=== PATIENT | male | born 1965 | race Caucasian/White ===

== ENCOUNTER 2023-01-31 07:43 | Outpatient (CLI) | payer OTHER, SELFPAY ==
[2023-01-31 08:39] LABS: Prothrombin Time 13.2 Seconds (11.1-14.7)
[2023-01-31 08:40] LABS: Partial Thromboplastin Time 25.6 SECONDS (22.3-36.8)
== END 2023-01-31 07:44 | disposition home or self-care (01) ==
LOC: ANHSURGERY 07:47
PROVIDERS: PCP Family Medicine; Visit Provider Urology
DX: Z01.818 Encounter for other preprocedural examination (principal); N20.0 Calculus of kidney
CPT/HCPCS: 36415; 85610; 85730; 87086

== ENCOUNTER 2023-02-03 01:12 | Day surgery (SDC) | payer OTHER, SELFPAY ==
[2023-01-25 15:09] VITALS: BMI 30.2
--- NOTE | 2023-01-25 15:21 | PC.NURSE ---
PRE-OP INSTRUCTIONS, PLEASE READ CAREFULLY Report to the Outpatient Waiting Room, entrance under the green pavilion located off [facility], at time _0630_ on date _02/03/23__. Planned Procedure Time: _0830__. Time changes happen often and if your time is changed the preop area will call you the afternoon before. - You and your visitor will be asked to self-screen and do not enter if you have any COVID symptoms. - A mask is optional within the hospital at this time. Patients may have clear liquids (water, carbonated beverages, clear teas, apple juice) until 3 hours prior to surgery (0530 AM) with a maximum of 20 ounces. - No food from midnight until time of surgery Take the following medications with a SIP of water the morning of surgery: __TYLENOL IF NEEDED__ DO NOT STOP ANY OF YOUR OTHER PRESCRIPTION MEDICATIONS PRIOR TO SURGERY ?EXCEPT THE FOLLOWING Medications to discontinue per physician __N/A__, Date to take last dose Please no make-up, nail hong konger, hairspray, perfume, deodorant, or body powder the day of surgery. No jewelry (including any body piercings) or valuables the day of surgery, leave them at home. Please take a shower or bath the night before, or the morning of, surgery with an antibacterial soap. Wear comfortable, loose fitting clothing. - Jewelry must be removed prior to entering the operating room. Rings and piercings that are not removed may be cut off. - The hospital will not accept responsibility for valuables. - Please leave all valuables, including medications, at home the day of surgery. If you are going home after surgery, a licensed dumpcart driver must drive you home. - NO public transportation without another adult if you receive anesthesia. - We recommend that an adult stay with you for 24 hours following discharge. - We also recommend that you do not drive, make important decision, drink alcoholic beverages, or take any drugs that were not prescribed by your health care provider for at least 24 hours after your discharge time. Follow any additional instructions given to you from your surgeon. If you or anyone in your household have experienced Covid symptoms in the past week, please notify your surgeon or the nurse liaison at the phone number below for possible testing. Telephone instructions given to _PATIENT_and asked if any additional questions and then verbalized understanding. Patient advised to call surgeon office or pre surgery nurse liaison [phone] if any additional questions.
[2023-02-03] VITALS (8 sets, daily range): BP systolic 123–147; BP diastolic 60–98; PULSE 60–88; RESP 12–20; TEMP 36.5–36.6; O2SAT 100
--- NOTE | ~2023-02-03 | XR_ITS ---
EXAMINATION: XR abdomen/kub 1V INDICATION: Urolithiasis TECHNIQUE: Supine views of the abdomen were obtained on 2 radiographs. COMPARISON: 03/30/2018 FINDINGS: There are five adjacent stones of the right kidney upper pole which measure up to 6 mm. The re appears to be a 7 mm stone of the left kidney lower pole. No definite stones are identified along the expected courses of the ureters or within the urinary bladder. The bowel gas pattern is normal. T he visualized lung bases are clear. IMPRESSION: 1. Bilateral nephrolithiasis. Reviewed, dictated and finalized at location B.
--- NOTE | 2023-02-03 07:14 | WPDHPUPDATE1 ---
History and Physical Update Update Date/Time: 02/03/23 07:14 History and Physical has been reviewed, including an updated exam of the patient. There are NO changes in the patient's condition. Risks, benefits, and alternatives have been discussed and questions answered. Patient agrees to proceed with procedure.
--- NOTE | 2023-02-03 09:27 | P.PNAN_ITS ---
Anes - Initial Pre Proc Eval Procedure: Operation Date: 02/03/23 11:30 Proposed Procedures p Left Extracorporeal Shock Wave Lithotripsy - Karlos Casillas MD Date/Time: 02/03/23 09:27 Surgeon: Karlos Casillas MD Pre Op Diagnosis: Lt Kidney Stone Patient Data Age: 58 Gender: M Height: 1.78 m Weight: 95.45 kg Allergies Allergy/AdvReac Type Severity Reaction Status Date / Time No Known Allergies Allergy Unverified 01/25/23 15:08 Home Medications Medication Instructions Recorded Confirmed Type acetaminophen 650 mg 1,300 mg PO Q8H PRN Pain 01/25/23 02/03/23 History tablet,extended release (Tylenol 8 Hour) cephalexin 500 mg capsule 500 mg PO Q8H #9 caps 02/03/23 Rx hydrocodone 5 mg-acetaminophen 325 1 - 2 tablet PO Q6H PRN pain #20 02/03/23 Rx mg tablet tabs Patient hx anesthesia problems: none Family hx anesthesia problems: none Results Review: All pre-operative results and documents have been reviewed as part of the pre- operative evaluation. PENDING SALE TO [facility] Past Medical History Medical History (Updated 01/03/23 @ 09:31 by Michael Holloway MD) H/O nephrolithotomy with removal of calculi Kidney stone on left side Kidney stones Family History Family History (Updated 01/03/23 @ 08:56 by Diana Lam CMA) Father Asthma Diabetes mellitus Cerebrovascular accident Social History Social History (Updated 01/03/23 @ 08:56 by Diana Lam CMA) Smoking status: Never smoker Tobacco type: smokeless tobacco Smokeless tobacco user: chewing tobacco Second hand tobacco smoke exposure: No Alcohol intake: current Alcohol use details: 1-2 DRINKS/WEEK Substance use: never Substance use type: does not use Lack of Transportation: No Lack of Food: Never True Current Housing: I Have Housing Concerned About Future Housing: No Difficulty Paying Gas/Electric Bills: No Difficulty Paying for Meds: No Currently Unemployed: No Education: Don't Know Difficulty w/ Childcare or Family Care: No Living arrangements: with family Occupation/Education: occupation 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 Informed Consent: The patient's anesthetic plan and its attendant risks and benefits were discussed with the patient/family/POA. Questions were solicited and answers provided to the satisfaction of the patient/family/POA.
[2023-02-03] MEDS: LACTATED RINGERS 1,000 ML 30 ML IV CONT (10:00)
[2023-02-03] MEDS: ceFAZolin 2 GM/D5W 50 ML 2 GM/50 ML BAG IVPB (10:57)
--- NOTE | 2023-02-03 11:26 | W.PM.PROC2 ---
Procedure Note - Detailed Date of Procedure 02/03/23 Pre-op Diagnosis Bilateral Kidney Stones Post-op Diagnosis Same Procedure Performed Left ESWL Surgeon Karlos Casillas MD Anesthesia General Description of Procedure The patient was brought to the operative suite where he was placed in the supine position on the Dornier lithotripsy table. The focal point of the lithotripter was placed at a 7-8mm left renal pelvic calculus. A total of 2500 shocks were delivered at a power setting of 1-4. There appeared to be good fragmentation of the stone. The patient tolerated the procedure well and was taken to the recovery room in good condition. Drains No Packing No Pathology None sent Complications No immediate complications Condition Stable
== END 2023-02-03 13:05 | disposition home or self-care (01) ==
PROVIDERS: PCP Family Medicine; Visit Provider Urology
PROC: (CPT 50590; principal; 2023-02-03 11:30)
DX: N20.0 Calculus of kidney (principal); F17.220 Nicotine dependence, chewing tobacco, uncomplicated; E66.9 Obesity, unspecified; Z68.29 Body mass index [BMI] 29.0-29.9, adult
CPT/HCPCS: 50590; 36415; 74018; 85610; 85730; 87086; J0690; J1100; J2250; J2405; J2704; J3010; J7120

== ENCOUNTER → 2023-02-17 11:01 | Outpatient (CLI) | payer OTHER, SELFPAY ==
--- NOTE | ~2023-02-17 | XR_ITS ---
EXAMINATION: XR abdomen/kub 1V INDICATION: Calculus of kidney TECHNIQUE: Supine views of the abdomen were obtained on 2 radiographs. COMPARISON: 02/03/2023 FINDINGS: Many of the previously described right kidney upper pole stones are no longer evident. Ther e is a single 5 mm linear calcification projecting at the right kidney upper pole. Suspected stones o f the left kidney are not definitely seen. No stone fragments are identified along the expected cours es of the ureters or in the urinary bladder. The bowel gas pattern is normal. The visualized lung bas es are clear. IMPRESSION: 1. Findings consistent with interval lithotripsy and single persistent right kidney upper pole stone. Reviewed, dictated and finalized at location B. IMPRESSION: 1. Findings consistent with interval lithotripsy and single persistent right ki dney upper pole stone.
== END ==
PROVIDERS: PCP Urology; Visit Provider Urology
DX: N20.0 Calculus of kidney (principal)
CPT/HCPCS: 74018

== ENCOUNTER 2023-11-16 08:23 | Day surgery (SDC) | payer OTHER, SELFPAY ==
[2023-10-26 15:05] VITALS: BMI 29.5
[2023-11-16 09:17] VITALS: BP 120/87; PULSE 65; RESP 16; TEMP 36.9; O2SAT 99; BMI 29.5
[2023-11-16] MEDS: LACTATED RINGERS 1,000 ML 150 ML IV CONT (09:30)
--- NOTE | 2023-11-16 10:09 | P.PNAN_ITS ---
Anes - Initial Pre Proc Eval Procedure: Operation Date: 11/16/23 10:30 Proposed Procedures p Screening Colonoscopy - Johan Porter MD Date/Time: 11/16/23 10:09 Surgeon: Johan Porter MD Pre Op Diagnosis: Neoplasm Screening Patient Data Age: 58 Gender: M Height: 1.78 m Weight: 93.3 kg Last Vital Signs Temp 36.9 C 11/16/23 09:17 Pulse 65 11/16/23 09:17 Resp 16 11/16/23 09:17 BP 120/87 11/16/23 09:17 Pulse Ox 99 11/16/23 09:17 O2 Del Method Room Air 11/16/23 09:17 Allergies Allergy/AdvReac Type Severity Reaction Status Date / Time No Known Allergies Allergy Verified 11/16/23 09:16 Home Medications Medication Instructions Recorded Confirmed Type cholecalciferol (vitamin D3) 5,000 unit PO .QD 10/20/23 11/16/23 History Patient hx anesthesia problems: none Family hx anesthesia problems: none Results Review: All pre-operative results and documents have been reviewed as part of the pre-operative evaluation. [facility] Past Medical History Medical History H/O nephrolithotomy with removal of calculi Kidney stone on left side Kidney stones Family History Family History Father Asthma Diabetes mellitus Cerebrovascular accident Social History Social History Smoking status: Never smoker Tobacco type: smokeless tobacco Smokeless tobacco user: chewing tobacco Second hand tobacco smoke exposure: No Alcohol intake: current Drinks per week: 3 Alcohol use details: 1-2 DRINKS/WEEK Substance use: never Substance use type: does not use Lack of Transportation: No Lack of Food: Never True Current Housing: I Have Housing Concerned About Future Housing: No Difficulty Paying Gas/Electric Bills: No Difficulty Paying for Meds: No Currently Unemployed: No Education: Don't Know Difficulty w/ Childcare or Family Care: No Living arrangements: with family Occupation/Education: occupation 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 Informed Consent: The patient's anesthetic plan and its attendant risks and benefits were discussed with the patient/family/POA. Questions were solicited and answers provided to the satisfaction of the patient/family/POA.
--- NOTE | 2023-11-16 10:17 | P.HP_ITS ---
History of Present Illness History of Present Illness Consent: Risks, benefits, and alternatives have been discussed and questions answered. Patient agrees to proceed with procedure. Chief complaint: Neoplasm Screening Narrative: Jnai Vu is a 58 year old male presents for screening colonoscopy. Patient reports his bowel habits are normal. He denies abdominal pain. Patient has had no bleeding. Family history noncontributory. Review of Systems Review of Systems: All systems reviewed & are unremarkable except as noted in HPI and below PMFSH Past Medical History Medical History H/O nephrolithotomy with removal of calculi Kidney stone on left side Kidney stones Family History Family History Father Asthma Diabetes mellitus Cerebrovascular accident Social History Social History Smoking status: Never smoker Tobacco type: smokeless tobacco Smokeless tobacco user: chewing tobacco Second hand tobacco smoke exposure: No Alcohol intake: current Drinks per week: 3 Alcohol use details: 1-2 DRINKS/WEEK Substance use: never Substance use type: does not use Lack of Transportation: No Lack of Food: Never True Current Housing: I Have Housing Concerned About Future Housing: No Difficulty Paying Gas/Electric Bills: No Difficulty Paying for Meds: No Currently Unemployed: No Education: Don't Know Difficulty w/ Childcare or Family Care: No Living arrangements: with family Occupation/Education: occupation 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 Vital signs stable. HEENT exam is unremarkable. Patient is anicteric. Lungs are clear to auscultation and to percussion. Heart is without murmur or extra sounds. Abdomen bowel sounds are present soft nontender with no organomegaly. Digital external rectal exam normal. Assessment and Plan Assessment and plan (1) Screening for colon cancer: Code(s): Z12.11 - Encounter for screening for malignant neoplasm of colon Status: Acute Assessment and Plan: Patient presents for neoplasia screening colonoscopy. He appears to be at average risk for colon polyps. Further recommendations may be given after e ndoscopy.
[2023-11-16 11:42] VITALS: BP 102/80; PULSE 79; RESP 15; O2SAT 99
[2023-11-16 11:52] VITALS: BP 121/82; PULSE 74; RESP 18; O2SAT 97
--- NOTE | 2023-11-16 11:54 | WPDANESPN ---
Anes - Prog Note Post-Op Date/Time: 11/16/23 11:54 Cardiovascular status: normal Respiratory status: normal Airway patency: baseline Mental status: baseline Post-Op hydration status: normal Vital Signs: Last Vital Signs Temp 36.9 C 11/16/23 09:17 Pulse 74 11/16/23 11:52 Resp 18 11/16/23 11:52 BP 121/82 11/16/23 11:52 Pulse Ox 97 11/16/23 11:52 O2 Del Method Room Air 11/16/23 11:52 Pain Score (VAS): 0/10 I/O: Intake & Output 11/15/23 11/16/23 11/16/23 23:59 07:59 15:59 Intake Total 600 Balance 600 Patient Feedback: Patient satisfied with anesthetic care.
[2023-11-16 12:02] VITALS: BP 126/84; PULSE 62; RESP 18; O2SAT 99
== END 2023-11-16 12:08 | disposition home or self-care (01) ==
PROVIDERS: PCP Physician Assistant Medical; Visit Provider Internal Medicine Gastroenterology
PROC: 0DJD8ZZ Inspection of Lower Intestinal Tract, Via Natural or Artificial Opening Endoscopic (ICD-10-PCS; CPT 45378; principal; 2023-11-16 10:30)
DX: Z12.11 Encounter for screening for malignant neoplasm of colon (principal); D12.3 Benign neoplasm of transverse colon; D12.5 Benign neoplasm of sigmoid colon; K57.30 Diverticulosis of large intestine without perforation or abscess without bleeding; K64.8 Other hemorrhoids
CPT/HCPCS: 45385

== ENCOUNTER 2023-11-17 10:33 | Outpatient (NON) | payer OTHER, SELFPAY | END 2023-11-17 10:34 | disposition home or self-care (01) | LOC: ANHLAB 10:34 | PROVIDERS: PCP Physician Assistant Medical; Visit Provider Internal Medicine Gastroenterology | DX: Z12.11 Encounter for screening for malignant neoplasm of colon (principal) | CPT/HCPCS: 88305 ==

== ENCOUNTER 2024-03-20 11:01 | Outpatient (CLI) | payer OTHER, SELFPAY ==
--- NOTE | ~2024-03-20 | CT_ITS ---
CLINICAL INDICATION: Hematuria. COMPARISON: 03/06/2018. TECHNIQUE: Computed tomography (CT) of the abdomen and pelvis was performed without intravenous contr ast. The dose-length product was 884.70 mGy-cm. FINDINGS/OBSERVATIONS: Visualized lower thorax:The bilateral lung bases are clear. Small hiatal hernia is present. The heart is of normal size, without pericardial effusion. Liver: The liver is not enlarged measuring 16 cm in longitudinal dimension. Gallbladder and biliary system: Multiple stones are identified within the gallbladder which is decomp ressed and otherwise unremarkable. Pancreas: Evaluation of the pancreas is limited secondary to the lack of intravenous contrast. Spleen: The spleen is not enlarged and demonstrates homogeneous attenuation Kidneys: Multiple stones are identified within the bilateral kidneys. The largest on the right is within the upper pole measuring 9 mm. The largest on the left is within the renal pelvis measuring 9.3 mm. No discrete hydroureteronephrosis is present. This configuration of calculi is unchanged from 2018 examination. Adrenal glands: Unremarkable Gastrointestinal tract: Unremarkable . Appendix:The air-filled appendix is of normal caliber (axial series, image 67) Vasculature: Unremarkable Lymph nodes: No pathologically enlarged or morphologically suspicious lymph nodes identified within t he retroperitoneum or at the root of the mesentery. Pelvic structures:The bladder is minimally distended, but otherwise unremarkable. Prostate gland contains a bulky calcification, also largely unchanged from 2018. Body wall and musculoskeletal: Small fat-containing umbilical hernia. No significant degenerative disease within the lumbosacral spine. IMPRESSION: Bilateral renal calculi, unchanged from 2018. No obstructive uropathy. Cholelithiasis. Reviewed, dictated and finalized at location A.
== END 2024-03-20 11:02 | disposition home or self-care (01) ==
LOC: MICIMG 11:02
PROVIDERS: PCP Physician Assistant Medical; Visit Provider Physician Assistant Medical
DX: N20.0 Calculus of kidney (principal); K80.20 Calculus of gallbladder without cholecystitis without obstruction; Z87.442 Personal history of urinary calculi
CPT/HCPCS: 74176

== ENCOUNTER 2024-03-27 17:14 | Outpatient (CLI) | payer OTHER, SELFPAY ==
[2024-03-27 17:38] LABS: Add Urine Microscopic? YES; Appearance Urine Clear (Clear); Bacteria Urine None Seen /hpf; Bilirubin Urine Negative (Negative); Blood Urine 2+ (Negative); Color Urine Yellow (Yellow); Glucose Urine UA Negative (Negative); Ketones Urine Negative (Negative); Leukocyte Esterase Ur Trace LEU/UL (Negative); Nitrate Urine Negative (Negative); Non Pathogenic Casts 0-2; Protein Urine Trace mg/dL (Negative); RBC Urine 21-50 /hpf (0-2); Squamous Epithelial Cell Urine None Seen /hpf (Few); Urobilinogen Urine 0.2 mg/dL (<2.0); WBC Urine 0-5 /hpf (0-3); pH Urine 6.5 (5.0-9.0)
[2024-03-27 17:43] LABS: Prothrombin Time 13.7 Seconds (11.1-14.7)
[2024-03-27 17:44] LABS: Partial Thromboplastin Time 27.6 Seconds (22.3-36.8)
== END 2024-03-27 17:15 | disposition home or self-care (01) ==
LOC: ANHLAB 17:15
PROVIDERS: PCP Internal Medicine; Visit Provider Urology
DX: N20.0 Calculus of kidney (principal)
CPT/HCPCS: 36415; 81001; 85610; 85730

== ENCOUNTER 2024-03-29 03:02 | Day surgery (SDC) | payer OTHER, SELFPAY ==
[2024-03-27 14:08] VITALS: BMI 30.2
--- NOTE | 2024-03-27 14:09 | PC.NURSE ---
Report to the Outpatient Waiting Room, entrance under the green pavilion located off [facility], at time _1200_ on date _[id number]_. Planned Procedure Time: _2pm_.? Time changes happen often and if your time is changed the preop area will call you the afternoon before. - You and your visitor will be asked to self-screen and do not enter if you have any COVID symptoms. Please call surgeon if you need to reschedule. - A mask is optional within the hospital at this time. Patients may have clear liquids (water, carbonated beverages, clear teas, apple juice) until 3 hours prior to surgery with a maximum of 20 ounces. - No food from midnight until time of surgery and no smoking Take only the following medications with a SIP of water on the morning of surgery: __None____ DO NOT STOP ANY OF YOUR OTHER PRESCRIPTION MEDICATIONS PRIOR TO SURGERY EXCEPT THE FOLLOWING Medications to discontinue per physician __Patient already stopped Vitamin D3 [id number]____ Date to take last dose____ Please no make-up, nail hungarian, hairspray, perfume, deodorant, or body powder the day of surgery.? No jewelry (including any body piercings) or valuables the day of surgery, leave them at home.? Please take a shower or bath the night before, or the morning of, surgery with an antibacterial soap.? Wear comfortable, loose fitting clothing.? - Jewelry must be removed prior to entering the operating room.? Rings and piercings that are not removed may be cut off. - The hospital will not accept responsibility for valuables.? - Please leave all valuables, including medications, at home the day of surgery. If you are going home after surgery, a licensed personal driver must drive you home.? - NO public transportation without another adult if you receive anesthesia. - We recommend that an adult stay with you for 24 hours following discharge. - We also recommend that you do not drive, make important decision, drink alcoholic beverages, or take any drugs that were not prescribed by your health care provider for at least 24 hours after your discharge time. Follow any additional instructions given to you from your surgeon. Telephone instructions given to _Ned___and asked if any additional questions and then verbalized understanding. Patient advised to call surgeon office or pre surgery nurse liaison [phone] if any additional questions.
[2024-03-29] VITALS (10 sets, daily range): BP systolic 123–169; BP diastolic 82–100; PULSE 62–74; RESP 12–18; TEMP 36.3–36.7; O2SAT 98–100; BMI 30.2
--- NOTE | ~2024-03-29 | XR_ITS ---
EXAMINATION: XR abdomen/kub 1V DATE: 03/29/2024 11:55 INDICATION: Kidney stone. TECHNIQUE: A supine view of the abdomen on 2 radiographs was obtained. COMPARISON: CT abdomen and pelvis 03/20/2024, radiographs 03/20/2024 FINDINGS: There are no dilated loops of bowel. There are gallstones in the gallbladder. There is a 7 mm stone in right kidney. There are approximately 3 stones in left kidney measuring up to 6 mm. IMPRESSION: 1. Bilateral kidney stones. 2. Cholelithiasis. Reviewed, dictated and finalized at location B.
--- NOTE | 2024-03-29 06:34 | WPDHPUPDATE1 ---
History and Physical Update Update Date/Time: 03/29/24 06:34 History and Physical has been reviewed, including an updated exam of the patient. There are NO changes in the patient's condition. Risks, benefits, and alternatives have been discussed and questions answered. Patient agrees to proceed with procedure.
[2024-03-29] MEDS: LACTATED RINGERS 1,000 ML 30 ML IV CONT (12:15)
--- NOTE | 2024-03-29 13:24 | P.PNAN_ITS ---
Anes - Initial Pre Proc Eval Procedure: Operation Date: 03/29/24 14:00 Proposed Procedures p Left Extracorporeal Shock Wave Lithotripsy - Karlos Casillas MD Date/Time: 03/29/24 13:24 Surgeon: Karlos Casillas MD Pre Op Diagnosis: Left Renal Stone Patient Data Age: 59 Gender: M Height: 1.78 m Weight: 95.5 kg Allergies Allergy/AdvReac Type Severity Reaction Status Date / Time No Known Allergies Allergy Verified 03/29/24 13:11 Home Medications Medication Instructions Recorded Confirmed Type cholecalciferol (vitamin D3) 5,000 unit PO .QD 10/20/23 03/27/24 History celecoxib 200 mg capsule (Celebrex) 200 mg PO DAILY 14 days #14 caps 03/20/24 03/27/24 Rx tamsulosin 0.4 mg capsule 0.4 mg PO DAILY #7 caps 03/20/24 03/27/24 Rx Patient hx anesthesia problems: none Family hx anesthesia problems: none Results Review: All pre-operative results and documents have been reviewed as part of the pre- operative evaluation. [facility] Past Medical History Medical History H/O nephrolithotomy with removal of calculi Kidney stone on left side Kidney stones Family History Family History Father Asthma Diabetes mellitus Cerebrovascular accident Social History Social History Social History: 03/17/24 very confident with medical forms Smoking status: Never smoker Tobacco type: smokeless tobacco Smokeless tobacco user: chewing tobacco Second hand tobacco smoke exposure: No Additional smoking assessment comments: quit chewing 18 months ago. 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 Informed Consent: The patient's anesthetic plan and its attendant risks and benefits were discussed with the patient/family/POA. Questions were solicited and answers provided to the satisfaction of the patient/family/POA.
--- NOTE | 2024-03-29 13:41 | W.PM.PROC2 ---
Procedure Note - Detailed Date of Procedure 03/29/24 Pre-op Diagnosis Left Renal Stone Post-op Diagnosis Same Procedure Performed Left ESWL Surgeon Karlos Casillas MD Anesthesia General Description of Procedure The patient was brought to the operative suite where he was placed in the supine position on the Dornier lithotripsy table. The focal point of the lithotripter was placed at a 9mm left renal pelvic calculus. A total of 2500 shocks were delivered at a power setting of 4. There appeared to be good fragmentation of the stone. The patient tolerated the procedure well and was taken to the recovery room in good condition. Drains No Packing No Pathology None sent Complications No immediate complications Disposition PACU
[2024-03-29] MEDS: ONDANSETRON INJ 4 MG/2 ML VIAL IV PUSH (14:28)
[2024-03-29] MEDS: fentaNYL CITRATE INJ (*CRX) 100 MCG/2 ML VIAL 25 MCG IV PUSH (15:17)
[2024-03-29] MEDS: oxyCODONE HCL (*CRX) 5 MG TAB IR PO (16:30)
== END 2024-03-29 16:50 | disposition home or self-care (01) ==
PROVIDERS: PCP Physician Assistant Medical; Visit Provider Urology
PROC: (CPT 50590; principal; 2024-03-29 14:00)
DX: N20.0 Calculus of kidney (principal); F17.220 Nicotine dependence, chewing tobacco, uncomplicated; E66.9 Obesity, unspecified; Z68.30 Body mass index [BMI] 30.0-30.9, adult; Z98.890 Other specified postprocedural states; Z82.49 Family history of ischemic heart disease and other diseases of the circulatory system
CPT/HCPCS: 50590; 74018; A9270; J1100; J2003; J2405; J2704; J3010; J7120

== ENCOUNTER 2024-04-16 14:44 | Outpatient (CLI) | payer OTHER, SELFPAY ==
--- NOTE | ~2024-04-16 | XR_ITS ---
EXAMINATION: XR abdomen/kub 1V DATE: 04/16/2024 14:54 INDICATION: Calculus of kidney. TECHNIQUE: A supine view of the abdomen on 2 radiographs was obtained. COMPARISON: CT abdomen and pelvis 03/20/2024 FINDINGS: There are no dilated loops of bowel. There are gallstones in the gallbladder. There is a 6 mm stone in right kidney. The kidneys are obscured by bowel. IMPRESSION: 1. 6 mm right kidney stone. Reviewed, dictated and finalized at location A. ITAL ADMISSIONS CLERK IMPRESSION: 1. 6 mm right kidney stone.
== END 2024-04-16 14:45 | disposition home or self-care (01) ==
PROVIDERS: PCP Physician Assistant Medical; Visit Provider Urology
DX: N20.0 Calculus of kidney (principal)
CPT/HCPCS: 74018

== ENCOUNTER 2024-10-15 15:57 | Outpatient (CLI) | payer OTHER, SELFPAY ==
--- NOTE | ~2024-10-15 | XR_ITS ---
EXAM: XR abdomen/kub 1V DATE: 10/15/2024 16:12 HISTORY: Kidney calculi . COMPARISON: 04/16/2024. FINDINGS: Clear lung bases. Normal bowel gas pattern. Mild liver enlargement. Calcifications over th e right upper quadrant, likely gallstones. Ovoid 6 mm calcification over the right upper pole shadow. Lumbar degenerative disc disease. Bilateral hip osteoarthritis. IMPRESSION: Stable right nephrolithiasis. Mild hepatomegaly. Cholelithiasis. Reviewed, dictated and finalized at location K.
== END 2024-10-15 15:58 | disposition home or self-care (01) ==
LOC: MICIMG 16:00
PROVIDERS: PCP Urology; Visit Provider Urology
DX: N20.0 Calculus of kidney (principal); R16.0 Hepatomegaly, not elsewhere classified; K80.20 Calculus of gallbladder without cholecystitis without obstruction
CPT/HCPCS: 74018